=== PATIENT | male | born 1970 | race African-American/Black ===

== ENCOUNTER 2018-06-02 10:30 | Emergency (ER) | payer BC, OTHER ==
[~2018-06-02] VITALS: Ht 185.4 cm; Wt 102.1 kg
[2018-06-02 10:31] VITALS: BP 141/97
[2018-06-02] MEDS ORDERED: NABUMETONE 750750 M1 PO (10:55)
== END 2018-06-02 11:05 | disposition home or self-care (01) ==
LOC: ER 10:30
DX: M25.462 Effusion, left knee (principal); M25.562 Pain in left knee

== ENCOUNTER 2018-06-28 11:30 | Emergency (ER) | payer BC, OTHER ==
[~2018-06-28] VITALS: Ht 180.3 cm; Wt 90.7 kg
[~2018-06-28 11:30] MED LIST: NABUMETONE 750750 M1 PO
[2018-06-28] MEDS ORDERED: NORCO 5-325 TA1 EACH PO (13:21)
[2018-06-28 13:39] VITALS: BP 144/88
== END 2018-06-28 13:35 | disposition home or self-care (01) ==
LOC: ER 11:30
DX: M25.462 Effusion, left knee (principal); M25.571 Pain in right ankle and joints of right foot